=== PATIENT | male | born 1995 | race Two or more races ===

== ENCOUNTER 2019-08-13 15:24 | Emergency (ER) | payer SELFPAY ==
[~2019-08-13] VITALS: Ht 170.2 cm; Wt 81.6 kg
[2019-08-13 15:57] VITALS: BP 132/72
[2019-08-13] MEDS ORDERED: TETRACAINE 0.5% OPHTH SOLUTION 4ML BOTTLE. OS STA (16:04)
[2019-08-13] MEDS ORDERED: FLUORESCEIN OPHTH TEST STRIP. OS STA (16:04)
--- NOTE | 2019-08-13 16:18 | PHYS DOC ---
Past Medical History Past Medical History: No Pertinent History Past Surgical History: No Surgical History Alcohol Use: None Drug Use: None Adult General Chief Complaint Chief Complaint: EYE PROBLEMS HPI HPI Patient is a 24 year old male who presents with left eye pain after working in the yard yesterday and had a wood splinter fly in his eye. He states his eyes been read, and pain and watering ever since that time. Rates his pain as 8 out of 10 in severity and sharp. Review of Systems Review of Systems Constitutional: Denies fever or chills [] Eyes: Denies change in visual acuity, Reports redness, and eye pain [] HENT: Denies nasal congestion or sore throat [] Respiratory: Denies cough or shortness of breath [] Cardiovascular: No additional information not addressed in HPI [] GI: Denies abdominal pain, nausea, vomiting, bloody stools or diarrhea [] : Denies dysuria or hematuria [] Musculoskeletal: Denies back pain or joint pain [] Integument: Denies rash or skin lesions [] Neurologic: Denies headache, focal weakness or sensory changes [] Endocrine: Denies polyuria or polydipsia [] Complete systems were reviewed and found to be within normal limits, except as documented in this note. Current Medications Current Medications Current Medications Medications (Trade) Dose Ordered Sig/Brendon Start Time Stop Time Status Last Admin Dose Admin Fluorescein Sodium (Ful-Renate) 1 strip 1X STAT 08/13/19 16:04 08/13/19 16:22 DC 08/13/19 16:04 1 STRIP Tetracaine HCl (Tetracaine) 1 drop 1X STAT 08/13/19 16:04 08/13/19 16:22 DC 08/13/19 16:04 1 DROP Allergies Allergies Allergies Coded Allergies Type Severity Reaction Last Updated Verified No Known Drug Allergies 08/13/19 No Physical Exam Physical Exam Constitutional: Well developed, well nourished, no acute distress, non-toxic appearance. [] HENT: Normocephalic, atraumatic, bilateral external ears normal, oropharynx mo ist, no oral exudates, nose normal. [] Eyes: PERRLA, EOMI, conjunctiva red in left eye with watery discharge Neck: Normal range of motion, no tenderness, supple, no stridor. [] Skin: Warm, dry, no erythema, no rash. [] Back: No tenderness, no CVA tenderness. [] Extremities: No tenderness, no cyanosis, no clubbing, ROM intact, no edema. [] Neurologic: Alert and oriented X 3, normal motor function, normal sensory function, no focal deficits noted. [] Psychologic: Affect normal, judgement normal, mood normal. [] Eye Exam using Wood's lamp shows abrasion to the L Upper [place]nea Current Patient Data Vital Signs Vital Signs Date Time Temp Pulse Resp B/P (MAP) Pulse Ox O2 Delivery O2 Flow Rate FiO2 08/13/19 15:57 98.6 68 16 132/72 (92) 99 Room Air 98.6 EKG EKG [] Radiology/Procedures Radiology/Procedures [] Course & Med Decision Making Course & Med Decision Making Pertinent Labs and Imaging studies reviewed. (See chart for details) Will perform alexander lamp examination. The patient has a corneal abrasion. No foreign body noted. Will give erythromycin and Valium to help eye rest during sleep the next 2 nights. Discussed with patient to go see an eye doctor if does not improve in the next 2 days. Dragon Disclaimer Dragon Disclaimer This electronic medical record was generated, in whole or in part, using a voice recognition dictation system. Departure Departure Impression: Primary Impression: Corneal abrasion Disposition: HOME, SELF-CARE Condition: STABLE Referrals: NO PCP (PCP) Patient Instructions: Eye - Corneal Abrasion Additional Instructions: Thank you for visiting [facility]. We appreciate you trusting us with your care. If any additional problems come up don't hesitate to return to visit us. Please follow up with your primary care provider so they can plan additional care if needed and know about the problem that you had. If symptoms worsen come back to the Emergency Department. Any concerning symptoms that start such as chest pain, shortness of air, weakness or numbness on one side of the body, running high fevers or any other concerning symptoms return to the ER. Please take medications as directed. Please go to eye doctor if not better in two days. Scripts Erythromycin Base (Erythromycin) 1 Gm Oint...g. 1 GM OS QID for 5 Days, #1 MISC 0.5 inch ribbon QID. Prov: DIAZBAUTISTA APRN 08/13/19 Diazepam (VALIUM) 5 Mg Tablet 5 MG PO HS for 2 Days, #2 TAB Please take before bedtime for the next 2 nights to let your eyes rest during sleep for better healing. Prov: BAUTISTA DIAZ APRN 08/13/19 Problem Qualifiers Primary Impression: Corneal abrasion Encounter type: initial encounter Laterality: left Qualified Codes: S05.02XA - Injury of conjunctiva and corneal abrasion without foreign body, left eye, initial encounter BAUTISTA DIAZ APRN Aug 13, 2019 16:18
[2019-08-13] MEDS ORDERED: DIAZ5TAB PO (17:01)
[2019-08-13] MEDS ORDERED: ERYT1OIN6 OS (17:01)
== END 2019-08-13 17:09 | disposition home or self-care (01) ==
LOC: ER 15:24
DX: S05.02XA Injury of conjunctiva and corneal abrasion without foreign body, left eye, initial encounter (principal); X58.XXXA Exposure to other specified factors, initial encounter; Y93.89 Activity, other specified; Y92.096 Garden or yard of other non-institutional residence as the place of occurrence of the external cause; Y99.0 Civilian activity done for income or pay
CPT/HCPCS: 99283

== ENCOUNTER 2020-04-19 22:44 | Emergency (ER) | payer SELFPAY ==
[~2020-04-19] VITALS: Ht 167.6 cm; Wt 79.5 kg
[~2020-04-19 22:44] MED LIST: DIAZ5TAB PO; ERYT1OIN6 OS
[2020-04-19 22:57] VITALS: BP 143/85
[2020-04-19] MEDS ORDERED: DIPH,PERTUSS(ACELL),TET VAC/PF 0.5 ML SYRINGE. VAX IM ONE (23:30)
[2020-04-19] MEDS ORDERED: ceFAZolin SODIUM IV Push 1 GM VIAL. IVP ONE (23:30)
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
[2020-04-19] MEDS ORDERED: LIDOCAINE 1% Multi-Dose 20 ML VIAL. INJ ONE (23:45)
[2020-04-19] MEDS ORDERED: HYDROcodone/APAP 5/325MG 1 TAB TABLET PO ONE (23:45)
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
[2020-04-20] MEDS ORDERED: BACITRACIN TOPICAL OINT PACKET. TP ONE (01:30)
[2020-04-20] MEDS ORDERED: CEPH-264 PO (02:00)
[2020-04-20] MEDS ORDERED: BACI28.34 TP (02:00)
[2020-04-20] MEDS ORDERED: HYDR-2761 PO (02:00)
[2020-04-20] MEDS ORDERED: IBUP-1007 PO (02:00)
== END 2020-04-20 02:15 | disposition home or self-care (01) ==
LOC: ER 22:44
DX: S61.012A Laceration without foreign body of left thumb without damage to nail, initial encounter (principal); S61.215A Laceration without foreign body of left ring finger without damage to nail, initial encounter; S60.222A Contusion of left hand, initial encounter; W23.0XXA Caught, crushed, jammed, or pinched between moving objects, initial encounter; Y93.89 Activity, other specified; Y92.69 Other specified industrial and construction area as the place of occurrence of the external cause; Y99.0 Civilian activity done for income or pay
CPT/HCPCS: 12002; 73130; 90471; 90715; 96374; 99284; J0690; J3490; 96372

== ENCOUNTER 2020-05-02 09:30 | Emergency (ER) | payer SELFPAY ==
[~2020-05-02] VITALS: Ht 172.7 cm; Wt 85.2 kg
[2020-05-02 09:30] VITALS: BP 157/90
[~2020-05-02 09:30] MED LIST changes: +BACI28.34 TP; +CEPH-264 PO; +HYDR-2761 PO; +IBUP-1007 PO
--- NOTE | 2020-05-02 09:56 | PHYS DOC ---
Past Medical History Past Medical History: No Pertinent History Past Surgical History: No Surgical History Smoking Status: Never Smoker Alcohol Use: Occasionally Drug Use: None General Adult EDM: Chief Complaint: SUTURE/STAPLE REMOVAL HPI: HPI: Patient is a 24 year old came in for sutures removed,injured left hand 10 days ago, had sutures here then. Review of Systems: Review of Systems: Constitutional: Denies fever or chills. [] Eyes: Denies change in visual acuity. [] HENT: Denies nasal congestion or sore throat. [] Respiratory: Denies cough or shortness of breath. [] Cardiovascular: Denies chest pain or edema. [] GI: Denies abdominal pain, nausea, vomiting, bloody stools or diarrhea. [] : Denies dysuria. [] Musculoskeletal: Denies back pain or joint pain. [] Integument: Denies rash. [] Neurologic: Denies headache, focal weakness or sensory changes. [] Endocrine: Denies polyuria or polydipsia. [] Lymphatic: Denies swollen glands. [] Psychiatric: Denies depression or anxiety. [] Heart Score: Risk Factors: Risk Factors: DM, Current or recent (<one month) smoker, HTN, HLP, family history of CAD, obesity. Risk Scores: Score 0 - 3: 2.5% MACE over next 6 weeks - Discharge Home Score 4 - 6: 20.3% MACE over next 6 weeks - Admit for Clinical Observation Score 7 - 10: 72.7% MACE over next 6 weeks - Early Invasive Strategies Allergies: Allergies: Allergies Coded Allergies Type Severity Reaction Last Updated Verified No Known Drug Allergies 08/13/19 No Physical Exam: PE: Constitutional: Well developed, well nourished, no acute distress, non-toxic appearance. [] Skin: Warm, dry, sutures in placed, wound healed. Extremities: No tenderness, no cyanosis, no clubbing, ROM intact, no edema. [] Neurologic: Alert and oriented X 3, normal motor function, normal sensory function, no focal deficits noted. [] Psychologic: Affect normal, judgement normal, mood normal. [] Current Patient Data: Vital Signs: Vital Signs Date Time Temp Pulse Resp B/P (MAP) Pulse Ox O2 Delivery O2 Flow Rate FiO2 05/02/20 09:30 98.1 75 16 157/90 (112) 96 Room Air 98.1 EKG: EKG: [] Radiology/Procedures: Radiology/Procedures: all sutures were removed by this physician. Course & Med Decision Making: Course & Med Decision Making Pertinent Labs and Imaging studies reviewed. (See chart for details) [] Dragon Disclaimer: Dragon Disclaimer: This electronic medical record was generated, in whole or in part, using a voice recognition dictation system. Departure Departure Impression: Primary Impression: Encounter for removal of sutures Disposition: HOME, SELF-CARE Condition: IMPROVED Referrals: NO PCP (PCP) Patient Instructions: Suture Removal Justicifation of Admission Dx: Justifications for Admission: Justification of Admission Dx: N/A NATTY MARIN DO May 02, 2020 09:56
== END 2020-05-02 09:58 | disposition home or self-care (01) ==
LOC: ER 09:30
DX: S61.012D Laceration without foreign body of left thumb without damage to nail, subsequent encounter (principal); S61.215D Laceration without foreign body of left ring finger without damage to nail, subsequent encounter; W23.0XXD Caught, crushed, jammed, or pinched between moving objects, subsequent encounter
CPT/HCPCS: 99281